=== PATIENT | female | born 1995 | race Native Hawaiian/Other Pacific Islander ===

== ENCOUNTER 2017-07-16 06:06 | Inpatient (IN) | payer MEDICAID ==
[2017-07-16] MEDS ORDERED: NACL 0.9% 1000 ML 1,000 ML ONE (07:19)
[2017-07-16] MEDS ORDERED: NORMOSOL-R PH 7.4 1,000 ML IV ONE (07:19)
[2017-07-16 07:49] LABS: Basophils % (Auto) 0.2 % (0.0-1.8); Eosinophils % (Auto) 0.3 % (0.0-4.3); Hematocrit 41.1 % (30.3-42.9); Lymphocytes # (Auto) 2.3 K/mm3 (1.2-5.4); Lymphocytes % (Auto) 15.6 % (13.4-35.0); Mean Corpuscular HGB Conc 34 % (30-34); Mean Corpuscular Hemoglobin 32 pg (28-32); Mean Corpuscular Volume 93 fl (79-97); Monocytes # (Auto) 0.5 K/mm3 (0.0-0.8); Monocytes % (Auto) 3.6 % (0.0-7.3); Platelet Count 282 K/mm3 (140-440); Red Blood Count 4.41 M/mm3 (3.65-5.03)
[2017-07-16] MEDS: STADOL IV PRN ×2 (07:49→12:40)
[2017-07-16] MEDS ORDERED: ZOFRAN ONE (08:09)
--- NOTE | 2017-07-16 08:28 | History and Physical Report ---
History of Present Illness Date of examination: 07/16/17 Date of admission: 07/16/17 06:31 Chief complaint: Labor History of present illness: Pt is a 22yo HF EDC 07/14/17; EGA 40 2/7 weeks presents to L&D complaining of RUC's q 3-5 mins. She received care at [facility] since 21 weeks and course has been unremarkable. records are available and GBS is Negative. Past History Past Medical History: no pertinent history Past Surgical History: no surgical history Family/Genetic History: hypertension Social history: no significant social history, - Obstetrical History Expected Date of Delivery: 07/14/17 Actual Gestation: 40 Week(s) 2 Day(s) : 1 Medications and Allergies Allergies Allergy/AdvReac Type Severity Reaction Status Date / Time No Known Allergies Allergy Verified 07/16/17 06:53 Active Meds: Active Medications Butorphanol Tartrate (Stadol) 2 mg IV Q2H PRN PRN Reason: Labor Pain Last Admin: 07/16/17 07:49 Dose: 2 mg Review of Systems All systems: negative - Vital Signs Vital signs: Vital Signs Temp Pulse Resp BP 98.2 F 85 18 116/79 07/16/17 06:27 07/16/17 06:27 07/16/17 06:27 07/16/17 06:27 Temp Pulse Resp BP Pulse Ox 98.2 F 76 18 102/58 94 07/16/17 06:27 07/16/17 08:26 07/16/17 06:27 07/16/17 08:18 07/16/17 08:26 - Physical Exam Breasts: Positive: deferred Cardiovascular: Regular rate Lungs: Positive: Clear to auscultation Abdomen: Positive: normal appearance Genitourinary (Female): Positive: normal external genitalia Vagina: Positive: normal moisture Uterus: Positive: enlarged Extremities: Positive: normal - Obstetrical FHR: category 1 Uterine Contraction Monitor Mode: External Cervical Dilatation: 5 Cervical Effacement Percentage: 100 station: 0 Uterine Contraction Pattern: Regular Uterine Tone Measurement Phase: Contraction Uterine Contraction Intensity: Moderate Results Result Diagrams: 07/16/17 07:00 Abnormal lab results 07/16/17 Range/Units 07:00 WBC 14.7 H (4.5-11.0) K/mm3 RDW 13.0 L (13.2-15.2) % Seg Neutrophils % 80.3 H (40.0-70.0) % Seg Neutrophils # 11.8 H (1.8-7.7) K/mm3 All other labs normal. Assessment and Plan - Patient Problems (1) 40 weeks gestation of Onset Date: 07/16/17 Current Visit: Yes Status: Acute Plan to address problem: A: IUP @ 40 2/7 weeks in labor P: Admit to L&D for expectant vaginal delivery
[2017-07-16] MEDS ORDERED: SUBLIMAZE IV PRN ×2 (08:31→09:00)
[2017-07-16] MEDS ORDERED: PITOCin/NS 30 UNIT/500ML 30 UNITS/500 ML BAG IV SCH (09:00)
[2017-07-16] MEDS ORDERED: XYLOCAINE 2% INFILTRATI NR (09:00)
[2017-07-16] MEDS ORDERED: BRETHINE SUB-Q PRN (09:00)
[2017-07-16] MEDS ORDERED: ZOFRAN IV PRN ×2 (09:00→16:54)
[2017-07-16] MEDS ORDERED: ePHEDrine SULFATE IV PRN (09:00)
[2017-07-16] MEDS ORDERED: NORMOSOL-R PH 7.4 1,000 ML IV SCH (09:00)
[2017-07-16] MEDS ORDERED: PITOCin/NS 20 UNIT/1000ML DRIP 20 UNITS/1,000 ML BAG IV SCH ×2 (09:00→17:00)
[2017-07-16] MEDS ORDERED: BRETHINE IVP PRN (09:00)
[2017-07-16] MEDS ORDERED: MINERAL OIL PO PRN (09:00)
--- NOTE | 2017-07-16 16:52 | Procedure Note ---
OB Delivery Note - Delivery Date of Delivery: 07/16/17 Surgeon: RAMONITA NGUYEN Estimated blood loss: 200cc - Vaginal Delivery presentation: vertex Delivery position: OA Intrapartum events: none Delivery induction: none Delivery augmentation: rupture of membranes Delivery monitor: external FHT, external uterine Route of delivery: Delivery placenta: spontaneous Delivery cord: 3 umbilical vessels Episiotomy: none Delivery laceration: 2nd degree (perineal) Delivery repair: vicryl Anesthesia: local Delivery comments: delivered OA and placed on Mom's chest for [id number] bonding and delayed cord clamping. - A at 1 minute: 8 at 5 minutes: 9 Gender: Female (3124gms)
[2017-07-16] MEDS ORDERED: TUCKS PAD TP PRN (16:54)
[2017-07-16] MEDS ORDERED: BENADRYL PO PRN (16:54)
[2017-07-16] MEDS ORDERED: PHENERGAN PO PRN (16:54)
[2017-07-16] MEDS ORDERED: NORCO 5/325 PO PRN (16:54)
[2017-07-16] MEDS ORDERED: LANSINOH TP PRN (16:54)
[2017-07-16] MEDS ORDERED: TYLENOL PO PRN (16:54)
[2017-07-16] MEDS ORDERED: PHENERGAN PR PRN (16:54)
[2017-07-16] MEDS ORDERED: MILK OF MAGNESIA PO PRN (16:54)
[2017-07-16] MEDS ORDERED: DULCOLAX PR PRN (16:54)
[2017-07-16] MEDS ORDERED: SODIUM CHLORIDE FLUSH SYRINGE 10 ML IV NR (17:00)
[2017-07-16] MEDS: MOTRIN PO SCH (17:56)
[2017-07-16] MEDS: FEOSOL PO SCH (22:05)
[2017-07-16] MEDS: COLACE PO SCH (22:05)
[2017-07-17] MEDS: MOTRIN PO SCH ×4 (00:10→23:35)
[2017-07-17] MEDS ORDERED: M-M-R II VACCINE SUB-Q ONE (06:00)
[2017-07-17] MEDS ORDERED: BOOSTRIX IM ONE (06:00)
[2017-07-17 06:12] LABS: Hematocrit 34.4 % (30.3-42.9); Hemoglobin 11.6 gm/dl (10.1-14.3)
--- NOTE | 2017-07-17 09:17 | Progress Note ---
Assessment and Plan - Patient Problems (1) 40 weeks gestation of Onset Date: 07/16/17 Current Visit: Yes Status: Resolved (2) (normal spontaneous vaginal delivery) Onset Date: 07/17/17 Current Visit: Yes Status: Resolved Plan to address problem: A: S/P - PPD #1 Doing well P: May go home tomorrow. Subjective - Subjective Date of service: 07/17/17 Principal diagnosis: s/p - PPD #1 Interval history: Pt is feeling well without complaints. Bleeding improved. Patient reports: appetite normal, voiding normally, pain well controlled, flatus , ambulating normally : doing well, nursing well, bottle feeding Objective - Vital Signs Latest vital signs: Vital Signs Temp Pulse Resp BP BP Pulse Ox 07/17/17 05:37 20 07/17/17 04:44 99.2 F 79 18 104/57 07/17/17 00:10 20 07/16/17 23:58 98.8 F 82 20 117/65 07/16/17 18:20 98.5 F 78 16 109/66 07/16/17 17:51 95 H 115/68 07/16/17 17:36 95 H 119/73 07/16/17 17:21 89 121/62 07/16/17 17:06 97 H 121/62 07/16/17 16:51 104 H 122/67 07/16/17 16:36 151 H 130/80 07/16/17 16:22 96 H 125/72 07/16/17 16:07 112 H 117/70 07/16/17 15:25 76 91 07/16/17 15:23 73 92 07/16/17 15:20 82 97 07/16/17 15:15 107 H 98 07/16/17 15:13 71 90 07/16/17 15:10 80 85 07/16/17 15:07 98 H 94 07/16/17 15:05 74 91 07/16/17 15:02 85 93 07/16/17 15:00 98.5 F 120 H 18 96 07/16/17 14:56 87 93 07/16/17 14:55 100 H 97 07/16/17 14:50 81 83 L 07/16/17 14:45 114 H 97 07/16/17 14:44 78 92 07/16/17 14:40 92 H 97 18 14:38 80 94 03/18 14:35 101 H 93 07/16/18 14:32 78 94 18 14:30 74 97 18 14:26 78 90 07/16/18 14:25 81 97 07/16/18 14:20 72 80 L 18 14:15 75 90 18 14:14 68 92 07/16/18 14:10 73 95 18 14:05 66 95 07/16/18 14:00 81 97 07/16/18 13:55 70 96 03/18 13:50 87 97 18 13:45 77 95 07/16/18 13:42 71 93 18 13:40 77 96 07/16/18 13:35 73 94 18 13:30 77 95 07/16/18 13:25 73 97 18 13:20 108 H 96 18 13:15 73 95 18 13:12 80 94 07/16/18 13:10 77 94 18 13:06 72 94 07/16/18 13:05 73 96 07/16/18 13:00 75 94 07/16/18 12:59 70 94 07/16/18 12:55 69 94 18 12:50 98 H 57 L 18 12:45 120 H 98 18 12:40 103 H 89 18 12:39 74 93 18 12:35 78 90 18 12:30 98.4 F 87 18 89 18 12:25 89 97 18 12:20 80 91 03/18 12:19 78 92 18 12:15 80 96 18 12:14 77 92 18 12:10 75 94 18 12:09 78 86 18 12:05 99 H 95 18 12:00 71 92 03/18 11:55 82 83 L 18 11:54 71 91 0318 11:50 113 H 98 18 11:48 79 94 03/18 11:45 79 97 18 11:41 73 93 18 11:40 89 98 18 11:35 77 87 18 11:30 85 97 18 11:25 79 98 18 11:20 81 92 18 11:15 84 96 18 11:10 82 96 18 11:05 81 94 18 11:04 74 92 18 11:00 81 95 18 10:59 81 93 18 10:55 91 H 96 07/16/17 10:50 79 97 07/16/17 10:45 101 H 98 07/16/17 10:43 71 94 07/16/17 10:40 79 95 07/16/17 10:35 82 95 07/16/17 10:30 78 96 07/16/17 10:25 83 97 07/16/17 10:21 77 92 07/16/17 10:20 98 H 96 07/16/17 10:15 89 96 07/16/17 10:10 86 96 07/16/17 10:07 79 94 07/16/17 10:05 85 95 07/16/17 10:00 82 92 07/16/17 09:57 92 H 94 07/16/17 09:55 87 96 07/16/17 09:50 86 96 07/16/17 09:49 87 94 18 09:45 81 94 18 09:44 87 94 07/16/17 09:40 78 96 07/16/17 09:35 86 97 18 09:30 82 94 18 09:25 82 97 07/16/17 09:20 104 H 95 Intake and Output 18 18 07/17/17 22:59 06:59 14:59 Intake Total 480 Output Total 200 400 Balance -200 80 Intake: Intake, Free Water 480 Output: Urine 200 400 Self-Catheterization 200 Void 400 Other: Total, Output Amount 200 400 # Voids Void 800 Estimated Blood Loss 200 - Exam Breasts: Present: deferred Cardiovascular: Present: Regular rate Lungs: Present: Clear to auscultation Abdomen: Present: normal appearance, soft Uterus: Present: normal, firm, fundal height below umbilicus Extremities: Present: normal - Labs Labs: Laboratory Tests 07/16/17 07/16/17 07/16/17 07:00 07:00 07:00 WBC 14.7 H RBC 4.41 Hgb 14.0 Hct 41.1 MCV 93 MCH 32 MCHC 34 RDW 13.0 L Plt Count 282 Lymph % (Auto) 15.6 Zavala % (Auto) 3.6 Eos % (Auto) 0.3 Baso % (Auto) 0.2 Lymph # 2.3 Zavala # 0.5 Eos # 0.0 Baso # 0.0 Seg Neutrophils % 80.3 H Seg Neutrophils # 11.8 H RPR Nonreactive Blood Type O POSITIVE Antibody Screen Negative 07/17/17 06:03 WBC RBC Hgb 11.6 Hct 34.4 D MCV MCH MCHC RDW Plt Count Lymph % (Auto) Zavala % (Auto) Eos % (Auto) Baso % (Auto) Lymph # Zavala # Eos # Baso # Seg Neutrophils % Seg Neutrophils # RPR Blood Type Antibody Screen
[2017-07-17] MEDS: COLACE PO SCH ×2 (10:00→22:12)
[2017-07-17] MEDS ORDERED: PRENATAL VITAMIN PO SCH (10:00)
[2017-07-17] MEDS: FEOSOL PO SCH ×2 (10:02→22:12)
--- NOTE | 2017-07-17 10:51 | Discharge Summary ---
Providers - Providers Date of Admission: 07/16/17 06:31 Date of discharge: 07/18/17 Attending physician: RAMONITA NGUYEN Primary care physician: RAMONITA NGUYEN Hospitalization Reason for admission: active labor, IUP at term Delivery: Episiotomy: none Laceration: 2nd degree Other procedures: none complications: none Discharge diagnosis: IUP at term delivered [place] baby: female Hospital course: Unremarkable. Condition at discharge: Good Disposition: DC-01 TO HOME OR SELFCARE - Discharge Diagnoses (1) 40 weeks gestation of Status: Resolved (2) (normal spontaneous vaginal delivery) Status: Resolved Plan - Discharge Medications Prescriptions: Ibuprofen [Motrin 600 MG tab] 600 mg PO Q6H #30 tablet Vit-Fe Fumar-FA [ Vitamin] 1 each PO QDAY #30 tablet - Provider Discharge Summary Activity: routine, no sex for 6 weeks, no heavy lifting 4 weeks, no strenuous exercise Diet: routine Instructions: routine Additional instructions: [] Smoking cessation referral if applicable(refer to patient education folder for contact #) [] Refer to [facility] Booklet Call your doctor immediately for: * Fever > 100.5 * Heavy vaginal bleeding ( >1 pad per hour) * Severe persistent headache * Shortness of breath * Reddened, hot, painful area to leg or breast * Drainage or odor from incision. * Keep incision clean and dry at all times and follow doctor's instructions regarding bathing/showering - Follow up plan Follow up: RAMONITA NGUYEN MD [Primary Care Provider] - 6 Weeks
[2017-07-17] MEDS ORDERED: Fluarix Quad 2017-2018(36 MOS+ IM ONE (12:00)
[2017-07-18] MEDS: MOTRIN PO SCH (05:08)
[2017-07-18 09:06] VITALS: BP 106/55
== END 2017-07-18 11:00 | disposition home or self-care (01) | DRG 775 ==
LOC: TRG 06:06 → LD 06:31 → TRG 06:31 → OB 18:26
PROVIDERS: ADMIT Obstetrics & Gynecology; ATTEND Obstetrics & Gynecology
PROC: 3E0234Z Introduction of Serum, Toxoid and Vaccine into Muscle, Percutaneous Approach (ICD-10-PCS; 2017-07-14)
PROC: 10E0XZZ Delivery of Products of Conception, External Approach (ICD-10-PCS; principal; 2017-07-16)
PROC: 0KQM0ZZ Repair Perineum Muscle, Open Approach (ICD-10-PCS; 2017-07-16)
DX: O70.1 Second degree perineal laceration during delivery (principal); Z37.0 Single live birth; Z3A.40 40 weeks gestation of pregnancy; Z23 Encounter for immunization
CPT/HCPCS: 36415; 85014; 85018; 85025; 86592; 86850; 86900; 86901; 90686; J0595; J2405; J2590; J7030